=== PATIENT | male | born 1955 | race Caucasian/White ===

== ENCOUNTER 2025-09-06 10:28 | Inpatient (IN) ==
[2025-09-06] MEDS: OPTIRAY 320 125ml IV ONE (10:33)
--- NOTE | 2025-09-06 10:35 | Emergency Department Note ---
Impression & Plan Acute CVA (cerebrovascular accident), Stroke-like symptoms, Hypokalemia ED Provider Note NAME: SUJIT LEWIS AGE: 70 SEX: M : 1955 ARRIVES VIA: Ambulance INFORMANT: Patient ED PROVIDER(S): Chuy Umaña DO CHIEF COMPLAINT: Trouble speaking and right-sided weakness HPI: Patient is a 70-year-old male with a past medical history of prostate cancer and arthritis who presents to the ER following going to bed some around 11 PM last night. He woke up some around 755 and noticed that his right side was weak and he fell. Patient denies any chest pain or shortness of breath. No nausea, vomiting, or diarrhea. No dysuria, urgency, or frequency. No other exacerbating or remitting factors. ADDITIONAL HISTORY OBTAINED: Per HPI Chronic Medical/Social Conditions Affecting Care: Per HPI PAST MEDICAL HISTORY:See Below PAST SURGICAL HISTORY:See Below FAMILY HISTORY:See Below SOCIAL HISTORY:See Below HOME MEDICATIONS:See Below ALLERGIES:See Below VITALS:See Below PHYSICAL EXAMINATION: GENERAL: Sitting up in bed, alert, well appearing, well nourished, no distress, non-toxic EYE EXAM: normal conjunctiva. PERRL and EOM's intact. OROPHARYNX: no exudate, no erythema, lips, buccal mucosa, and tongue normal and mucous membranes are moist NECK: supple, no nuchal rigidity, no adenopathy, non-tender LUNGS: Clear to auscultation. Normal chest wall mechanics HEART: no murmurs, S1 normal and S2 normal ABDOMEN: abdomen soft, non-tender, normo-active bowel sounds, no masses, no rebound or guarding. UPPER EXTREMITIES: upper extremities are grossly normal. LOWER EXTREMITIES: No pitting edema. NEURO EXAM: Normal sensorium, slight facial droop on the right, right arm and right leg slightly weaker than left. No left-sided weakness MEDICAL DECISION MAKING: Patient is a 70-year-old male who presents ER via EMS for received medical command call on 4 right-sided deficit. Upon evaluation the patient he notes he woke up this way. Went to bed last night around 11 PM. IVs were established blood work was obtained. Taken emergently to CT scan. Labs show mild leukocytosis 11,000. No significant anemia. INR unremarkable. BMP with mild hypokalemia at 130. LFTs bilirubin was unremarkable. Troponin was negative. TSH unremarkable. CT angios of the head and neck showed no a left-sided stroke consistent with a right-sided deficit. Patient woke up with this this morning. Patient is not a candidate for TNK due to timing. No LVO. Discussed case with the hospitalist for further evaluation management treatment. Discussed with her she telestroke evaluate the patient recommended aspirin and Plavix although the patient cannot take Plavix and she failed swallow study currently. Update the hospitalist in regards to this. Consults/Care Managements Discussions: Per [facility] Triage Nursing notes reviewed. Limited review of prior medical records performed Vital Signs: reviewed and remarkable for no significant abnormalities Differential diagnosis: Differential Diagnosis includes but is not limited to ischemic Stroke, hemorrhagic stroke, bells palsy, mass, neoplasm, migraine headache, seizure, subarachnoid hemorrhage, TIA, and transient global amnesia. ER treatment provided: See below Diagnostics interpreted by me include EKG and cardiac monitoring as listed below: -Cardiac Monitoring: An order was placed for continuous cardiac monitoring. The monitor shows a rate of with [] rhythm. -ECG: Sinus rhythm rate of 88 Left axis No PVCs QTc 445 -Laboratory studies:Interpreted by me as stated above in MDM and shown below. Imaging studies: Xrays: As interpreted by me:none CTs show: CT of the head per my preliminary interpretation shows stroke in the left thalamus region per my preliminary interpretation CT of the head as well as angios of head and neck as described above Procedures:none Critical Care: None Past Med/Surg History Problem List (Updated 09/06/25 @ 14:52 by Chuy Umaña DO) Hypokalemia (Acute) Stroke-like symptoms (Acute) Acute CVA (cerebrovascular accident) (Acute) Arthritis Prostate cancer Elevated PSA Urinary symptom or sign Medical History Broken thumb Ruptured ear drum Torn ligament Surgical History History of hernia surgery History of prostate biopsy Family History Father Lung cancer Cancer Mother Ovarian cancer Social History Smoking Status: Former smoker Hx Alcohol Use: Yes Hx Substance Use: No Preferred Language: Yemeni Communication Ability: Effective Visual Impairment: No Limitations Hearing Ability: Normal 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 Beliefs That Will Affect Care: None marital status: Single Current Living Situation: Alone current occupational status: retired Feels Safe at Home: Yes Diet: regular Allergies Allergies Allergy/AdvReac Type Severity Reaction Status Date / Time Penicillins Allergy Unknown Rash Verified 04/19/21 11:51 pollen extracts AdvReac Unknown "seasonal Verified 09/06/25 11:48 allergies" Results & Data (ED) Vital Signs Vital Signs - 24 hr 09/06/25 10:38 09/06/25 11:04 09/06/25 11:20 Temperature 36.5 C Temperature Source Oral Pulse Rate 99 H 90 Pulse Rate [Apical] 96 H Respiratory Rate 18 18 Respiratory Effort / Characteristics Non-Labored Spontaneous Non-Labored Spontaneous Respiratory Depth Normal Normal Respiratory Pattern Regular Blood Pressure 147/86 H Blood Pressure [Left Arm] 150/98 H Blood Pressure Mean 106 Blood Pressure Mean [Left Arm] 115 Blood Pressure Position Lying Blood Pressure Position [Left Arm] Pulse Oximetry 99 97 Oxygen Delivery Method Room Air Room Air Sepsis Recent Fever Within 48 Hours No Sepsis New/Unexplained Change in Mental Status No Sepsis Action Taken by Nursing No Action Required 09/06/25 12:11 09/06/25 13:00 09/06/25 14:14 Temperature 37.0 C 37.0 C Temperature Source Oral Oral Pulse Rate Pulse Rate [Apical] 84 86 87 Respiratory Rate 20 18 16 Respiratory Effort / Characteristics Non-Labored Spontaneous Non-Labored Spontaneous Respiratory Depth Normal Normal Respiratory Pattern Regular Regular Blood Pressure Blood Pressure [Left Arm] 145/83 H 139/73 144/80 H Blood Pressure Mean Blood Pressure Mean [Left Arm] 103 95 101 Blood Pressure Position Blood Pressure Position [Left Arm] Semi-fowlers Semi-fowlers Semi-fowlers Pulse Oximetry 98 97 98 Oxygen Delivery Method Room Air Room Air Room Air Sepsis Recent Fever Within 48 Hours Sepsis New/Unexplained Change in Mental Status Sepsis Action Taken by Nursing Laboratory Data 09/06/25 10:42 09/06/25 10:42 Lab Results 09/06/25 09/06/25 Range/Units 10:42 10:45 WBC 11.15 H (4.8-10.8) K/ul RBC 4.13 L (4.70-6.10) M/uL Hgb 12.7 L (14.0-18.0) g/dl Hct 35.9 L (42.0-52.0) % MCV 86.9 (80.0-100.0) fL MCH 30.8 (25.0-34.0) pg MCHC 35.4 (32.0-36.0) g/dL RDW Std Deviation 40.5 (36.4-46.3) fL RDW Coeff of Fiona 12.8 (11.5-14.5) % Plt Count 322 (130-400) K/uL MPV 9.2 L (9.4-12.4) fL Immature Gran % (Auto) 0.4 % Neut % (Auto) 75.8 % Lymph % (Auto) 13.0 % Broome % (Auto) 7.3 % Eos % (Auto) 3.0 % Baso % (Auto) 0.5 % Neut # (Auto) 8.45 H (1.40-6.50) K/uL Lymph # (Auto) 1.45 (1.20-3.40) K/uL Broome # (Auto) 0.81 H (0.11-0.59) K/uL Eos # (Auto) 0.34 (0.00-0.50) K/uL Baso # (Auto) 0.06 (0.00-0.20) K/uL Immature Gran # (Auto) 0.04 (0.01-0.20) K/uL PT 10.9 (9.0-12.0) Seconds INR 1.0 (0.9-1.1) APTT 28 (21-31) Seconds PTT Ratio 1.0 Sodium 130 L (136-145) mmol/L Potassium 3.9 (3.5-5.1) mmol/L Chloride 101 (98-107) mmol/L Carbon Dioxide 19 L (21-32) mmol/L Anion Gap 10 (3-11) BUN 17 (6-23) mg/dl Creatinine 0.72 (0.6-1.4) mg/dl Est Cr Clr Drug Dosing 98.6 ml/min eGFR 98.28 BUN/Creatinine Ratio 23.6 H (10-20) Glucose 87 (70-99(Fasting)) mg/dl POC Glucose 82 (70-99) mg/dl Estimat Average Glucose 97 mg/dl Hemoglobin A1c 5.0 (4.5-5.6) % Calcium 8.6 (8.6-10.3) mg/dl Magnesium 1.7 (1.7-2.4) mg/dl Total Bilirubin 0.8 (0.2-1.0) mg/dl AST 23 (13-39) U/L ALT 18 (7-52) U/L Alkaline Phosphatase 65 (34-104) U/L Troponin I High Sens 4.7 (0-20) pg/ml Total Protein 6.2 (6.0-8.3) gm/dl Albumin 3.5 (3.4-5.0) gm/dl Globulin 2.7 (2.5-4.0) gm/dl Albumin/Globulin Ratio 1.3 (0.9-2) Triglycerides 79 (0-150) mg/dl Cholesterol 151 (0-200) mg/dl LDL Cholesterol, Calc 90 mg/dl VLDL Cholesterol, Calc 16 (0-30) mg/dl HDL Cholesterol 45 mg/dl Cholesterol/HDL Ratio 3.4 (0-5) Vitamin B12 248 (180-914) pg/ml TSH 1.761 (0.300-4.500) uIu/ml Administered Medications Atorvastatin Calcium (Atorvastatin 40 Mg Tab) 40 mg PO [facility] Stop: 10/06/25 11:44 Last Admin: 09/06/25 13:01 Dose: Not Given Documented By: SHANTE Folic Acid (Folic Acid 1 Mg Tab) 1 mg PO [facility] Stop: 10/06/25 11:59 Last Admin: 09/06/25 13:02 Dose: Not Given Documented By: SHANTE Dextrose/Lactated Ringer's (D5w And Lactated Ringers) 1,000 mls @ 100 mls/hr IV .Q10H [facility] Stop: 09/09/25 11:59 Last Admin: 09/06/25 13:18 Dose: 100 mls/hr Documented By: SHANTE Multivitamins (Multivitamin Tab) 1 tab PO [facility] Stop: 10/06/25 11:59 Last Admin: 09/06/25 13:02 Dose: Not Given Documented By: SHANTE Discontinued Medications Aspirin (Aspirin 300 Mg Supp) 300 mg OR ONE ONE Stop: 09/06/25 11:33 Last Admin: 09/06/25 12:56 Dose: 300 mg Documented By: SHANTE Thiamine HCl 500 mg/ Sodium (Chloride) 55 mls @ 210 mls/hr IV NOW ONE Stop: 09/06/25 12:05 Last Infusion: 09/06/25 13:17 Dose: Infused Documented By: Admin: 09/06/25 12:58 Dose: 210 mls/hr Documented By: SHNATE Ioversol (Optiray 320 125ml) 120 ml IV ONCE ONE Stop: 09/06/25 10:34 Last Admin: 09/06/25 10:33 Dose: 120 ml Documented By: MAYA Imaging Data Radiologist's Impression: Head CT 09/06/25 10:20 CT SCAN OF THE BRAIN WITHOUT IV CONTRAST CLINICAL HISTORY: Weakness. Confusion. Evaluate for stroke. COMPARISON STUDY: None. TECHNIQUE: Unenhanced axial CT scan of the brain was performed from the vertex to the skull base. A dose lowering technique was utilized adhering to the principles of ALARA. FINDINGS: No acute intracranial hemorrhage is present. Note is made of a 3.4 x 1.8 cm hypodense focus within the left basal ganglia on image 55 of 112. There is suggestive of mild mass effect with slight compression of the left lateral ventricle. A small hypoechoic dense 5 mm focus within left caudate head may be chronic. White matter hypodensity suggests small vessel disease. Basal cisterns are patent. There are no extra-axial collections. There are no calvarial fractures. There is mild sinus mucosal thickening. IMPRESSION: 1. No acute intracranial hemorrhage. 2. 3.4 x 1.8 cm hypodense focus within left basal ganglia suggestive of an acute to subacute infarct with mild mass effect. 3. Small age indeterminate left caudate head infarct. ACT 112: Negative or not required by law. Electronically signed by: Gentry Goldman M.D. 09/06/2025 11:01 AM Head CTA 09/06/25 10:20 CTA ANGIOGRAPHY OF THE HEAD CLINICAL HISTORY: neuro deficit, acute stroke suspected COMPARISON STUDY: No previous studies for comparison. TECHNIQUE: Helical axial images of the head were obtained following uneventful intravenous administration of 120 cc of Optiray. Sagittal and coronal reconstructions were viewed as well as maximal intensity projections on an independent 3-D workstation. Automated exposure control was utilized for the study. A dose lowering technique was utilized adhering to the principles of ALARA. CT DOSE: 1516.25 mGy.cm FINDINGS: A 3.4 x 1.8 cm hypodense focus within the left basal ganglia is better depicted on the unenhanced head CT which will be reported separately. No acute intracranial hemorrhage is present. The bilateral M1 and M2 segments are patent. Both anterior cerebral arteries arise from the left internal carotid artery. Posterior circulation is intact. No large vessel occlusion is identified. No intracranial aneurysm. IMPRESSION: 1. No large vessel occlusion. No intracranial aneurysm. 2. 3.4 x 1.8 cm hypodense focus within the left basal ganglia better depicted on the noncontrast head CT. This is suggestive of an acute to subacute infarct with mild mass effect. ACT 112: Negative or not required by law. Electronically signed by: Gentry Goldman M.D. 09/06/2025 11:06 AM Neck CTA 09/06/25 10:20 CT angio neck with con CLINICAL HISTORY: neuro deficit, acute stroke suspected. TECHNIQUE: Following the IV administration of 120 of Optiray, CT angiogram of the neck was performed from the aortic arch to the skull base. Images are reviewed in the axial, sagittal, and coronal planes. 3-D MIPS images are created and assessed. IV contrast was administered without complication. All measurements were calculated based on NASCET criteria. A dose lowering technique was utilized adhering to the principles of ALARA. COMPARISON STUDY: None FINDINGS: Origin of the left common carotid artery is off the field of view inferiorly. No significant narrowing or occlusion seen at the common or internal carotid or vertebral arteries bilaterally. IMPRESSION: No significant arterial narrowing or occlusion seen at the neck. ACT 112: Negative or not required by law. The above report was generated using voice recognition software. It may contain grammatical, syntax or spelling errors. Electronically signed by: Solitario Silva M.D. 09/06/2025 11:[address] 09/06/25 10:35 CT SCAN OF THE CERVICAL SPINE CLINICAL HISTORY: Fall. Confusion. COMPARISON STUDY: None. TECHNIQUE: CT scan of the cervical spine is performed from the skull base to the upper thoracic spine. Images are reviewed in the axial, sagittal, and coronal planes. IV contrast was not administered for this examination. A dose lowering technique was utilized adhering to the principles of ALARA. FINDINGS: Skeletal structures: There is mild reversal of the cervical lordosis. Moderate multilevel disc space narrowing, endplate osteophytosis and facet arthrosis within the cervical spine is present. There is no evidence of fracture or subluxation involving the cervical spine. Vertebral body height and alignment are maintained. The odontoid process and lateral masses are intact. The atlantoaxial articulation is preserved. The spinous processes appear intact. Soft tissues: The prevertebral and paraspinous soft tissues are within normal limits. Calvarium: The visualized calvarium at the skull base appears intact. Brain parenchyma: Partially visualized brain parenchyma at the skull base is within normal limits. Lung apices: Clear as visualized. IMPRESSION: No acute cervical spine fracture or subluxation. ACT 112: Negative or not required by law. Electronically signed by: Gentry Goldman M.D. 09/06/2025 11:13 AM Brain MRI 09/06/25 11:35 MR brain wo con HISTORY: 70 years-old Male stroke acute stroke like symptoms COMPARISON: Head CT 09/06/2025 TECHNIQUE: Multiplanar multisequence MRI of the brain was obtained without IV contrast FINDINGS: 2.1 x 3.9 x 3.4 similar focus of restricted diffusion involves the left frontal lobe stringer radiata/lentiform nucleus with decreased signal on ADC map and increased T2/FLAIR signal causing mild adjacent mass effect with partial effacement of the left lateral ventricle. Midline structures are unremarkable. Degenerative changes of the cervical spine. Rightward midline shift of 5 mm. No acute intracranial hemorrhage, hydrocephalus or definite intra-axial mass. Involutional changes with moderate T2/FLAIR hyperintense foci throughout the white matter. Cerebral venous sinuses and major arterial flow voids appear patent. Skull, orbits and soft tissues are unremarkable. Trace mastoid effusions. IMPRESSION: 1. Acute 4 cm infarct of the left frontal lobe stringer radiata and lentiform nucleus. The associated cytotoxic edema causes local mass effect with resultant 5 mm rightward midline shift. 2. No acute intracranial hemorrhage. 3. Involutional changes with chronic microvascular ischemic disease. ACT 112: Negative or not required by law. The above report was generated using voice recognition software. It may contain grammatical, syntax or spelling errors. Electronically signed by: Nathen Padilla M.D. 09/06/2025 12:53 PM Discharge Plan Visit Data Chief Complaint: Stroke Alert ED Provider: Chuy Umaña Discharge Problem: Acute CVA (cerebrovascular accident), Stroke-like symptoms, Hypokalemia Patient Disposition: Admitted As Inpatient Condition: Serious Discharge Instructions Interventions: ED Discharge Assessment Last Done: 09/06/25 14:25 Forms Stand Alone Forms: My [facility] Referrals Referrals: Eric Jensen MD [Primary Care Provider] -
--- NOTE | 2025-09-06 11:03 | CT Scan Report ---
CT SCAN OF THE BRAIN WITHOUT IV CONTRAST CLINICAL HISTORY: Weakness. Confusion. Evaluate for stroke. COMPARISON STUDY: None. TECHNIQUE: Unenhanced axial CT scan of the brain was performed from the vertex to the skull base. A dose lowering technique was utilized adhering to the principles of ALARA. FINDINGS: No acute intracranial hemorrhage is present. Note is made of a 3.4 x 1.8 cm hypodense focus within the left basal ganglia on image 55 of 112. There is suggestive of mild mass effect with sligh t compression of the left lateral ventricle. A small hypoechoic dense 5 mm focus within left caudate head may be chronic. White matter hypodensity suggests small vessel disease. Basal cisterns are paten t. There are no extra-axial collections. There are no calvarial fractures. There is mild sinus mucosa l thickening. IMPRESSION: 1. No acute intracranial hemorrhage. 2. 3.4 x 1.8 cm hypodense focus within left basal ganglia suggestive of an acute to subacute infarct with mild mass effect. 3. Small age indeterminate left caudate head infarct. ACT 112: Negative or not required by law. Electronically signed by: Gentry Goldman M.D. 09/06/2025 11:01 AM
--- NOTE | 2025-09-06 11:06 | CT Scan Report ---
CT angio neck with con CLINICAL HISTORY: neuro deficit, acute stroke suspected. TECHNIQUE: Following the IV administration of 120 of Optiray, CT angiogram of the neck was performed from the aortic arch to the skull base. Images are reviewed in the axial, sagittal, and coronal plane s. 3-D MIPS images are created and assessed. IV contrast was administered without complication. All m easurements were calculated based on NASCET criteria. A dose lowering technique was utilized adherin g to the principles of ALARA. COMPARISON STUDY: None FINDINGS: Origin of the left common carotid artery is off the field of view inferiorly. No significan t narrowing or occlusion seen at the common or internal carotid or vertebral arteries bilaterally. IMPRESSION: No significant arterial narrowing or occlusion seen at the neck. ACT 112: Negative or not required by law. The above report was generated using voice recognition software. It may contain grammatical, syntax o r spelling errors. Electronically signed by: Solitario Silva M.D. 09/06/2025 11:05 AM
[2025-09-06 11:07] LABS: Hematocrit (blood only) 35.9 % (42.0-52.0); Hemoglobin 12.7 g/dl (14.0-18.0); Immature Granulocytes # (auto) 0.04 K/uL (0.01-0.20); Immature Granulocytes % (auto) 0.4 %; Mean Corpuscular Hemoglobin 30.8 pg (25.0-34.0); Mean Corpuscular Volume 86.9 fL (80.0-100.0); Platelet Count 322 K/uL (130-400); RDW Standard Deviation 40.5 fL (36.4-46.3); Red Blood Count 4.13 M/uL (4.70-6.10); White Blood Count 11.15 K/ul (4.8-10.8)
--- NOTE | 2025-09-06 11:07 | CT Scan Report ---
CTA ANGIOGRAPHY OF THE HEAD CLINICAL HISTORY: neuro deficit, acute stroke suspected COMPARISON STUDY: No previous studies for comparison. TECHNIQUE: Helical axial images of the head were obtained following uneventful intravenous administr ation of 120 cc of Optiray. Sagittal and coronal reconstructions were viewed as well as maximal inten sity projections on an independent 3-D workstation. Automated exposure control was utilized for the study. A dose lowering technique was utilized adhering to the principles of ALARA. CT DOSE: 1516.25 mGy.cm FINDINGS: A 3.4 x 1.8 cm hypodense focus within the left basal ganglia is better depicted on the unen hanced head CT which will be reported separately. No acute intracranial hemorrhage is present. The bi lateral M1 and M2 segments are patent. Both anterior cerebral arteries arise from the left internal c arotid artery. Posterior circulation is intact. No large vessel occlusion is identified. No intracran ial aneurysm. IMPRESSION: 1. No large vessel occlusion. No intracranial aneurysm. 2. 3.4 x 1.8 cm hypodense focus within the left basal ganglia better depicted on the noncontrast head CT. This is suggestive of an acute to subacute infarct with mild mass effect. ACT 112: Negative or not required by law. Electronically signed by: Gentry Goldman M.D. 09/06/2025 11:06 AM
--- NOTE | 2025-09-06 11:15 | CT Scan Report ---
CT SCAN OF THE CERVICAL SPINE CLINICAL HISTORY: Fall. Confusion. COMPARISON STUDY: None. TECHNIQUE: CT scan of the cervical spine is performed from the skull base to the upper thoracic spine . Images are reviewed in the axial, sagittal, and coronal planes. IV contrast was not administered fo r this examination. A dose lowering technique was utilized adhering to the principles of ALARA. FINDINGS: Skeletal structures: There is mild reversal of the cervical lordosis. Moderate multilevel disc space narrowing, endplate osteophytosis and facet arthrosis within the cervical spine is present. There is no evidence of fracture or subluxation involving the cervical spine. Vertebral body height and alignm ent are maintained. The odontoid process and lateral masses are intact. The atlantoaxial articulatio n is preserved. The spinous processes appear intact. Soft tissues: The prevertebral and paraspinous soft tissues are within normal limits. Calvarium: The visualized calvarium at the skull base appears intact. Brain parenchyma: Partially visualized brain parenchyma at the skull base is within normal limits. Lung apices: Clear as visualized. IMPRESSION: No acute cervical spine fracture or subluxation. ACT 112: Negative or not required by law. Electronically signed by: Gentry Goldman M.D. 09/06/2025 11:13 AM
[2025-09-06 11:26] LABS: Alanine Aminotransferase 18.0 U/L (7-52); Albumin Globulin Ratio 1.3 (0.9-2); Albumin Level 3.5 gm/dl (3.4-5.0); Alkaline Phosphatase 65.0 U/L (34-104); Anion Gap 10.0 (3-11); Bilirubin,Total 0.8 mg/dl (0.2-1.0); Blood Urea Nitrogen 17.0 mg/dl (6-23); Calcium 8.6 mg/dl (8.6-10.3); Carbon Dioxide 19.0 mmol/L (21-32); Chloride 101.0 mmol/L (98-107); Creatinine Clr Calc Pharmacy 98.6 ml/min; Globulin 2.7 gm/dl (2.5-4.0); Glucose 87.0 mg/dl (70-99(Fasting)); Magnesium 1.7 mg/dl (1.7-2.4); Potassium 3.9 mmol/L (3.5-5.1); Sodium 130.0 mmol/L (136-145); Total Protein 6.2 gm/dl (6.0-8.3)
[2025-09-06] MEDS ORDERED: PHARMACIST DISCHARGE MED REC CONSULT PRN (11:35)
[2025-09-06 11:37] LABS: INR 1.0 (0.9-1.1); Partial Thromboplastin Time 28 Seconds (21-31); Prothrombin Time 10.9 Seconds (9.0-12.0)
[2025-09-06 12:46] LABS: Cholesterol 151.0 mg/dl (0-200); HDL Cholesterol 45.0 mg/dl; Triglycerides 79.0 mg/dl (0-150)
--- NOTE | 2025-09-06 12:54 | Magnetic Resonance Report ---
MR brain wo con HISTORY: 70 years-old Male stroke acute stroke like symptoms COMPARISON: Head CT 09/06/2025 TECHNIQUE: Multiplanar multisequence MRI of the brain was obtained without IV contrast FINDINGS: 2.1 x 3.9 x 3.4 similar focus of restricted diffusion involves the left frontal lobe stringer radiata/l entiform nucleus with decreased signal on ADC map and increased T2/FLAIR signal causing mild adjacent mass effect with partial effacement of the left lateral ventricle. Midline structures are unremarkab le. Degenerative changes of the cervical spine. Rightward midline shift of 5 mm. No acute intracrania l hemorrhage, hydrocephalus or definite intra-axial mass. Involutional changes with moderate T2/FLAIR hyperintense foci throughout the white matter. Cerebral venous sinuses and major arterial flow voids appear patent. Skull, orbits and soft tissues a re unremarkable. Trace mastoid effusions. IMPRESSION: 1. Acute 4 cm infarct of the left frontal lobe stirnger radiata and lentiform nucleus. The associated c ytotoxic edema causes local mass effect with resultant 5 mm rightward midline shift. 2. No acute intracranial hemorrhage. 3. Involutional changes with chronic microvascular ischemic disease. ACT 112: Negative or not required by law. The above report was generated using voice recognition software. It may contain grammatical, syntax o r spelling errors. Electronically signed by: Nathen Padilla M.D. 09/06/2025 12:53 PM
[2025-09-06] MEDS: ASPIRIN 300 MG SUPP PR ONE (12:56)
[2025-09-06] MEDS: THIAMINE HCL 500 MG in SODIUM CHLORIDE 0.9% 50 ML IV ONE (12:58)
[2025-09-06] MEDS: ATORVASTATIN 40 MG TAB PO SCH (13:01)
[2025-09-06 13:02] LABS: Thyroid Stimulating Hormone 1.761 uIu/ml (0.300-4.500)
[2025-09-06] MEDS: FOLIC ACID 1 MG TAB PO SCH (13:02)
[2025-09-06] MEDS: MULTIVITAMIN TAB PO SCH (13:02)
[2025-09-06] MEDS: D5W AND LACTATED RINGERS 1,000 ML IV SCH (13:18)
[2025-09-06 13:53] LABS: Hemoglobin A1C 5.0 % (4.5-5.6)
[2025-09-06] MEDS ORDERED: POLYETHYLENE (MIRALAX) 17 GM PACK PO PRN (16:18)
[2025-09-06 16:22] LABS: Amphetamines+Metham, Urine Neg (Neg); MDMA (Ecstacy), Urine Neg (Neg); Marijuana, Urine Neg (Neg)
--- NOTE | 2025-09-06 16:56 | XCELERA ---
[id number]
--- NOTE | 2025-09-06 17:56 | History & Physical Report ---
Date of Service September 06, 2025 Assessment & Plan (1) Hypokalemia: (2) Acute CVA (cerebrovascular accident): (3) Elevated PSA: Plan 70 yo male with pmhx of alcohol use (6 drinks per night), mild cognitive impairment 2/2 alcohol use, tobacco use, hypothyroidism, prostate cancer (unclear staging or etiology) presenting for right arm/leg movement difficulties and confusion 2/2 acute stroke. #Left Frontal Snow Radiata/Lentiform Nucleus Stroke #Cytotoxic Edema w/ Midline Shift -as noted on MR brain, 5mm midline shift with cytotoxic edema -has NIHSS of 7 on my exam for dysarthria, mild loss of sensation on right side, right leg drift, right arm drift, partial paralysis of right lower face -has substantial alcohol use which is likely risk factor Plan: -neurology consulted, appreciate recs -discussed MR findings personally with neurology, recommending supportive care -speech, PT/OT consults, failed bedside swallow, will await speech eval -stroke order set utilized -start maintenance D5LR at 100cc/hr -check A1c, lipids, TSH for metabolic workup -check tox screen -aspirin and statin daily, ordered aspirin rectal given failed bedside swallow #Alcohol Use #R/o Wernickes/Korsakoff Syndrome -drinks at least 6 drinks per night -charted evidence of cognitive impairment noted -does have some mild myoclonus on exam Plan: -AWSS score tracking -ativan prn for high AWSS scores -start thiamine, folic acid, check B12 -will need alcohol rehab discussion once out of acute period for stroke #Hypothyroidism -not on any home meds -check TSH #Tobacco Use -nicotine patch prn I spent a total of 80 minutes in direct patient care, including [id number] time with the patient and/or family, reviewing medical records, ordering and reviewing diagnostic tests, and coordinating care with other healthcare providers. This time includes: history taking, physical examination, medical decision making, counseling, ECG interpretation, imaging interpretation, lab interpretation, orders, and education, excluding time spent in the performance of separately billed services. Admission and Anticipated Discharge Date Admission Date: September 06, 2025 History of Present Illness Chief Complaint: -right arm/leg movement difficulties Primary Care Provider: Eric Jensen MD 70 yo male with pmhx of alcohol use (6 drinks per night), mild cognitive impairement 2/2 alcohol use, tobacco use, hypothyroidism, prostate cancer (unclear staging or etiology) presenting for right arm/leg movement difficulties and confusion. No recent admissions. In the ED, code stroke called, CT head revealing acute/subacute infarct in left basal ganglia, telestroke recommended admission for stroke workup, aspirin given, admitted to medicine. Patient seen and examined at bedside. Patient states he went to bed normally last night, was drinking last night as well and states he passed out. Drinks at least 6 beers nightly. Woke up this morning and could not move right arm or right leg. States this has not happened to him before. States he fell to the ground and does not remember how he got here. States he is at hospital, does not know which hospital. States he feels like he is improving Code status discussed, patient states that he would not want intubation or chest compressions at end of life, was able to explain what this means with readback. Was able to explain risks and benefits of resuscitation after being informed of them. Allergies Allergy/AdvReac Type Severity Reaction Status Date / Time Penicillins Allergy Intermediate Rash Verified 09/06/25 15:44 pollen extracts Allergy Unknown "seasonal Verified 09/06/25 15:44 allergies" Home Medications Medication Instructions Recorded Confirmed Type No Known Home Medications 09/06/25 09/06/25 History Past Med/Surg History Problem List (Updated 09/06/25 @ 14:52 by Chuy Umaña DO) Hypokalemia (Acute) Stroke-like symptoms (Acute) Acute CVA (cerebrovascular accident) (Acute) Arthritis Prostate cancer Elevated PSA Urinary symptom or sign Medical History Broken thumb Ruptured ear drum Torn ligament Surgical History History of hernia surgery History of prostate biopsy Family History Father Lung cancer Cancer Mother Ovarian cancer Social History Smoking Status: Current every day smoker Tobacco Type: Cigarettes Second Hand Exposure: No; Do You Dip or Chew Tobacco: No; Tobacco Cessation Education Requested by Patient: No Hx Alcohol Use: Yes Alcohol type: beer Hx Substance Use: No Preferred Language: Thai Communication Ability: Effective Visual Impairment: No Limitations Hearing Ability: Normal Information Security Director Required: No Beliefs That Will Affect Care: None marital status: Single Current Living Situation: Alone current occupational status: retired Other Information That Helps Us Care for You: No Feels Safe at Home: Yes Safety Concerns: Feels Safe At This Time Diet: regular Assistive Devices: Glasses Review of Systems Review of Systems: -negative unless listed above Physical Exam Physical Exam: Gen: A&O 3 NAD HEENT: NCAT, EOMI, not icteric. External ears normal. No rhinorrhea. Dry mucous membranes. Neck: Supple, full range of motion, no observable masses, No meningeal sign. Lungs: No Respiratory distress. CV: RRR, no edema. Abdomen: Soft, nondistended, No rebound tenderness. MSK: No joint swelling, no redness. Skin: No rashes, petechiae, lesions. Normal color per patient. Neuro:NIHSS of 7 points for dysarthria, mild loss of sensation on right side, right leg drift, right arm drift, partial paralyisis of right lower face Psych: Appropriate for situation. Results & Data Results & Data Vital Signs (Past 12 Hours) Vital Signs Temp Pulse Pulse Resp BP BP Pulse Ox 09/06/25 16:25 36.5 C 83 16 165/88 H 99 09/06/25 14:14 37.0 C 87 16 144/80 H 98 09/06/25 13:00 86 18 139/73 97 09/06/25 12:11 37.0 C 84 20 145/83 H 98 09/06/25 11:20 96 H 18 150/98 H 97 09/06/25 11:04 90 09/06/25 10:38 36.5 C 99 H 18 147/86 H 99 O2 Del Method 09/06/25 16:25 Room Air 09/06/25 14:14 Room Air 09/06/25 13:00 Room Air 09/06/25 12:11 Room Air 09/06/25 11:20 Room Air 09/06/25 11:04 09/06/25 10:38 Room Air Laboratory Results -personally revieewed, WBC mildly elevated likely reactive, Na 130 in setting of alcohol use Medications Administered Atorvastatin Calcium ([facility]atin 40 Mg Tab) [facility] Stop: 10/06/25 11:44 Last Admin: 09/06/25 13:01 Dose: Not Given Documented By: SHANTE Folic Acid (Folic Acid 1 Mg Tab) 1 mg PO QAM [facility] Stop: 10/06/25 11:59 Last Admin: 09/06/25 13:02 Dose: Not Given Documented By: SHANTE Dextrose/Lactated Ringer's (D5w And Lactated Ringers) 1,000 mls @ 100 mls/hr IV .Q10H [facility] Stop: 09/09/25 11:59 Last Admin: 09/06/25 13:18 Dose: 100 mls/hr Documented By: SHANTE Multivitamins (Multivitamin Tab) [facility] Stop: 10/06/25 11:59 Last Admin: 09/06/25 13:02 Dose: Not Given Documented By: SHANTE Code Status & VTE Plan Code Status -DNRDNI, discussed with patient VTE Prophylaxis Plan VTE Prophylaxis will be ordered: Yes
[2025-09-07 06:21] LABS: Hematocrit (blood only) 38.3 % (42.0-52.0); Hemoglobin 13.0 g/dl (14.0-18.0); Immature Granulocytes # (auto) 0.05 K/uL (0.01-0.20); Immature Granulocytes % (auto) 0.6 %; Mean Corpuscular Hemoglobin 29.4 pg (25.0-34.0); Mean Corpuscular Volume 86.7 fL (80.0-100.0); Platelet Count 307 K/uL (130-400); RDW Standard Deviation 40.8 fL (36.4-46.3); Red Blood Count 4.42 M/uL (4.70-6.10); White Blood Count 8.51 K/ul (4.8-10.8)
[2025-09-07 06:42] LABS: Anion Gap 6.0 (3-11); Blood Urea Nitrogen 16.0 mg/dl (6-23); Calcium 8.9 mg/dl (8.6-10.3); Carbon Dioxide 25.0 mmol/L (21-32); Chloride 106.0 mmol/L (98-107); Creatinine Clr Calc Pharmacy 109.1 ml/min; Glucose 121.0 mg/dl (70-99(Fasting)); Potassium 3.7 mmol/L (3.5-5.1); Sodium 137.0 mmol/L (136-145)
--- NOTE | 2025-09-07 08:11 | Hospitalist Progress Note ---
Date of Service September 07, 2025 Assessment & Plan (1) Acute CVA (cerebrovascular accident): Plan Per admitting provider w/ addendum: 70 yo male with pmhx of alcohol use (6 drinks per night), mild cognitive impairment 2/2 alcohol use, tobacco use, hypothyroidism, prostate cancer (unclear staging or etiology) presenting for right arm/leg movement difficulties and confusion 2/2 acute stroke. MR brain - IMPRESSION: 1. Acute 4 cm infarct of the left frontal lobe stringer radiata and lentiform nucleus. The associated cytotoxic edema causes local mass effect with resultant 5 mm rightward midline shift. 2. No acute intracranial hemorrhage. 3. Involutional changes with chronic microvascular ischemic disease. #Left Frontal Stringer Radiata/Lentiform Nucleus Stroke #Cytotoxic Edema w/ Midline Shift - discussed w/ neurology - seems overread -as noted on MR brain, 5mm midline shift with cytotoxic edema -has NIHSS of 7 on admission for dysarthria, mild loss of sensation on right si de, right leg drift, right arm drift, partial paralysis of right lower face -has substantial alcohol use which is likely risk factor Plan: -neurology consulted, appreciate recs -admitting provider discussed MR findings personally with neurology, recommending supportive care -speech, PT/OT consults -stroke order set utilized -received IVF -current A1c 5%, lipids - LDL 90, TSH 1.7 -check tox screen - pending -aspirin and statin daily, ordered aspirin rectal on admission given failed bedside swallow Neurology consulted and discussed with - 1) Acute CVA (cerebrovascular accident): Aníbal Solomon is a 70 yo M presenting with a L BG stroke, non-lacunar, likely embolic secondary to uncontrolled vascular risk factors, including hypertension and tobacco/alcohol use. Agree he may have some mild cognitive impairment beyond the language impairment from the stroke itself. Recommend ongoing thiamine and alcohol withdrawl monitoring. For the stroke aspirin monotherapy is appropriate. Agree with lipitor 40mg daily as well. While the stroke is abutting the lateral ventricle on the L there is no clinically significant brain compression despite the read of midline shift on the MRI study. Does not qualify for manitol, no evidence of high ICP on exam and given the size of the stroke this is not exp ected to worsen significantly. -- Aspirin 81mg daily -- Lipitor 40mg daily -- Thiamine PO supplementation -- Alcohol withdrawal monitoring/rehab -- Cardiac event monitor at discharge -- Therapy evals, likely acute rehab placement -- Neurology follow-up in 4-6 weeks #Alcohol Use #R/o Wernickes/Korsakoff Syndrome -drinks at least 6 drinks per night -charted evidence of cognitive impairment noted - +mild myoclonus on exam on admission Plan: -AWSS score tracking -ativan prn for high AWSS scores -started thiamine, folic acid, B12 level 200s, will start B12 supplement as well -will need alcohol rehab discussion once out of acute period for stroke #Hypothyroidism -not on any home meds -TSH 1.7 #Tobacco Use -nicotine patch prn Admission and Anticipated Discharge Date Admission Date: September 06, 2025 Subjective Pt seen in follow up of acute CVA, also hx of alcohol abuse Currently sitting up in bed in NAD Denies any chest pain, shortness of breath, abd. pain, n/b, denies any headache Can't move RUE. Can somewhat move RLE but noticeably weaker than his LLE. Discussed w/ finance assistant of Systems Review of Systems: All systems reviewed & are unremarkable except as noted in Subjective Physical Exam Physical Exam: Gen: A&O 3 NAD HEENT: NCAT, EOMI, not icteric. External ears normal. No rhinorrhea. Neck: Supple Lungs: No Respiratory distress. CV: RRR, no edema. Abdomen: Soft, nondistended, Nontender MSK: No LE edema. Can't move RUE. Can somewhat move RLE but noticeably weaker than LLE. Skin: warm, dry Neuro: awake, alert, answers most questions appropriately. + facial asymmetry. Can't move RUE. Can somewhat move RLE but noticeably weaker than LLE. Results & Data Results & Data Vital Signs (Past 12 Hours) Vital Signs Temp Pulse Pulse Resp BP Pulse Ox O2 Del Method 09/07/25 07:57 77 09/07/25 07:26 36.6 C 78 18 116/74 95 Room Air 09/07/25 03:15 36.6 C 85 18 119/70 95 Room Air 09/06/25 22:59 36.8 C 75 18 122/66 96 Room Air Laboratory Results 09/07/25 09/07/25 09/06/25 Range/Units 06:17 05:41 23:11 WBC 8.51 (4.8-10.8) K/ul RBC 4.42 L (4.70-6.10) M/uL Hgb 13.0 L (14.0-18.0) g/dl Hct 38.3 L (42.0-52.0) % MCV 86.7 (80.0-100.0) fL MCH 29.4 (25.0-34.0) pg MCHC 33.9 (32.0-36.0) g/dL RDW Std Deviation 40.8 (36.4-46.3) fL RDW Coeff of Fiona 13.0 (11.5-14.5) % Plt Count 307 (130-400) K/uL MPV 9.2 L (9.4-12.4) fL Immature Gran % (Auto) 0.6 % Neut % (Auto) 66.0 % Lymph % (Auto) 16.7 % Isabella % (Auto) 9.8 % Eos % (Auto) 6.1 % Baso % (Auto) 0.8 % Neut # (Auto) 5.62 (1.40-6.50) K/uL Lymph # (Auto) 1.42 (1.20-3.40) K/uL Isabella # (Auto) 0.83 H (0.11-0.59) K/uL Eos # (Auto) 0.52 H (0.00-0.50) K/uL Baso # (Auto) 0.07 (0.00-0.20) K/uL Immature Gran # (Auto) 0.05 (0.01-0.20) K/uL PT (9.0-12.0) Seconds INR (0.9-1.1) APTT (21-31) Seconds PTT Ratio Sodium 137 (136-145) mmol/L Potassium 3.7 (3.5-5.1) mmol/L Chloride 106 (98-107) mmol/L Carbon Dioxide 25 (21-32) mmol/L Anion Gap 6 (3-11) BUN 16 (6-23) mg/dl Creatinine 0.63 (0.6-1.4) mg/dl Est Cr Clr Drug Dosing 109.1 ml/min eGFR 102.33 BUN/Creatinine Ratio 25.4 H (10-20) Glucose 121 H (70-99(Fasting)) mg/dl POC Glucose 107 H 110 H (70-99) mg/dl Estimat Average Glucose mg/dl Hemoglobin A1c (4.5-5.6) % Calcium 8.9 (8.6-10.3) mg/dl Magnesium (1.7-2.4) mg/dl Total Bilirubin (0.2-1.0) mg/dl AST (13-39) U/L ALT (7-52) U/L Alkaline Phosphatase (34-104) U/L Troponin I High Sens (0-20) pg/ml Total Protein (6.0-8.3) gm/dl Albumin (3.4-5.0) gm/dl Globulin (2.5-4.0) gm/dl Albumin/Globulin Ratio (0.9-2) Triglycerides (0-150) mg/dl Cholesterol (0-200) mg/dl LDL Cholesterol, Calc mg/dl VLDL Cholesterol, Calc (0-30) mg/dl HDL Cholesterol mg/dl Cholesterol/HDL Ratio (0-5) Vitamin B12 (180-914) pg/ml TSH (0.300-4.500) uIu/ml Urine Opiates Screen (Neg) Ur Methadone, Qual (Neg) Urine Fentanyl Screen (Neg) Urine Barbiturates (Neg) Ur Phencyclidine (PCP) (Neg) U Amphetamin/Meth Scrn (Neg) MDMA (Ecstasy) Screen (Neg) U Benzodiazepines Scrn (Neg) Ur Cocaine Metabolite (Neg) U Marijuana (THC) Screen (Neg) Hepatitis C Ab Screen Pending 09/06/25 09/06/25 09/06/25 Range/Units 15:30 10:45 10:42 WBC 11.15 H (4.8-10.8) K/ul RBC 4.13 L (4.70-6.10) M/uL Hgb 12.7 L (14.0-18.0) g/dl Hct 35.9 L (42.0-52.0) % MCV 86.9 (80.0-100.0) fL MCH 30.8 (25.0-34.0) pg MCHC 35.4 (32.0-36.0) g/dL RDW Std Deviation 40.5 (36.4-46.3) fL RDW Coeff of Fiona 12.8 (11.5-14.5) % Plt Count 322 (130-400) K/uL MPV 9.2 L (9.4-12.4) fL Immature Gran % (Auto) 0.4 % Neut % (Auto) 75.8 % Lymph % (Auto) 13.0 % Isabella % (Auto) 7.3 % Eos % (Auto) 3.0 % Baso % (Auto) 0.5 % Neut # (Auto) 8.45 H (1.40-6.50) K/uL Lymph # (Auto) 1.45 (1.20-3.40) K/uL Isabella # (Auto) 0.81 H (0.11-0.59) K/uL Eos # (Auto) 0.34 (0.00-0.50) K/uL Baso # (Auto) 0.06 (0.00-0.20) K/uL Immature Gran # (Auto) 0.04 (0.01-0.20) K/uL PT 10.9 (9.0-12.0) Seconds INR 1.0 (0.9-1.1) APTT 28 (21-31) Seconds PTT Ratio 1.0 Sodium 130 L (136-145) mmol/L Potassium 3.9 (3.5-5.1) mmol/L Chloride 101 (98-107) mmol/L Carbon Dioxide 19 L (21-32) mmol/L Anion Gap 10 (3-11) BUN 17 (6-23) mg/dl Creatinine 0.72 (0.6-1.4) mg/dl Est Cr Clr Drug Dosing 98.6 ml/min eGFR 98.28 BUN/Creatinine Ratio 23.6 H (10-20) Glucose 87 (70-99(Fasting)) mg/dl POC Glucose 82 (70-99) mg/dl Estimat Average Glucose 97 mg/dl Hemoglobin A1c 5.0 (4.5-5.6) % Calcium 8.6 (8.6-10.3) mg/dl Magnesium 1.7 (1.7-2.4) mg/dl Total Bilirubin 0.8 (0.2-1.0) mg/dl AST 23 (13-39) U/L ALT 18 (7-52) U/L Alkaline Phosphatase 65 (34-104) U/L Troponin I High Sens 4.7 (0-20) pg/ml Total Protein 6.2 (6.0-8.3) gm/dl Albumin 3.5 (3.4-5.0) gm/dl Globulin 2.7 (2.5-4.0) gm/dl Albumin/Globulin Ratio 1.3 (0.9-2) Triglycerides 79 (0-150) mg/dl Cholesterol 151 (0-200) mg/dl LDL Cholesterol, Calc 90 mg/dl VLDL Cholesterol, Calc 16 (0-30) mg/dl HDL Cholesterol 45 mg/dl Cholesterol/HDL Ratio 3.4 (0-5) Vitamin B12 248 (180-914) pg/ml TSH 1.761 (0.300-4.500) uIu/ml Urine Opiates Screen Neg (Neg) Ur Methadone, Qual Neg (Neg) Urine Fentanyl Screen Neg (Neg) Urine Barbiturates Neg (Neg) Ur Phencyclidine (PCP) Neg (Neg) U Amphetamin/Meth Scrn Neg (Neg) MDMA (Ecstasy) Screen Neg (Neg) U Benzodiazepines Scrn Neg (Neg) Ur Cocaine Metabolite Neg (Neg) U Marijuana (THC) Screen Neg (Neg) Hepatitis C Ab Screen Medications Administered Current Inpatient Medications Acetaminophen (Acetaminophen 325 Mg Tab) 650 mg PO Q4H PRN PRN Reason: Pain or Fever Stop: 10/06/25 16:17 Aspirin (Aspirin 81 Mg Ectab) 81 mg PO [facility] Stop: 10/07/25 08:59 Atorvastatin Calcium ([facility]orvastatin 40 Mg Tab) [facility] Stop: 10/06/25 11:44 Last Admin: 09/06/25 13:01 Dose: Not Given Folic Acid (Folic Acid 1 Mg Tab) 1 mg PO QAM [facility] Stop: 10/06/25 11:59 Last Admin: 09/06/25 13:02 Dose: Not Given Dextrose (D5w) 1,000 mls @ 80 mls/hr IV .[id number] [facility] Stop: 09/10/25 08:14 Influenza Virus Vacc Triv Types A&B (Influenza Vacc [id number](65y+)/Pf (Iiv3) 0.5ml Syr) 0.5 ml IM .ONCE ONE Stop: 09/07/25 09:01 Miscellaneous (Remove Nicoderm Patch) 1 each N/A DAILY@0859 [facility] Stop: 10/07/25 08:58 Miscellaneous Information (Pharmacist Discharge Med Rec Consult) 1 each N/A UD PRN PRN Reason: Consult Stop: 10/06/25 11:34 Multivitamins (Multivitamin Tab) 1 tab PO QAM [facility] Stop: 10/06/25 11:59 Last Admin: 09/06/25 13:02 Dose: Not Given Nicotine (Nicotine 14 Mg/24 Hr Patch) 1 patch TD DAILY PRN PRN Reason: nicotine cravings Stop: 10/06/25 18:20 Pneumococcal 20-Valent Conj Vacc (Pneumococcal Vaccine (Pcv20) 20-Gabbi Conj-Dip Crm/Pf 0.5 Ml Syr) 0.5 ml IM .ONCE ONE Stop: 09/07/25 09:01 Polyethylene Glycol (Polyethylene (Miralax) 17 Gm Pack) 17 gm PO DAILY PRN PRN Reason: Constipation Stop: 10/06/25 16:17 Thiamine HCl (Thiamine Hcl 100 Mg Tab) 100 mg PO QAM [facility] Stop: 10/07/25 08:59
--- NOTE | 2025-09-07 08:59 | Electrocardiogram Report ---
Test Reason : Blood Pressure : */* mmHG Vent. Rate : 88 BPM Atrial Rate : 88 BPM P-R Int : 166 ms QRS Dur : 90 ms QT Int : 368 ms P-R-T Axes : 52 -73 55 degrees QTcB Int : 445 ms Normal sinus rhythm Left axis deviation Abnormal ECG No previous ECGs available Confirmed by Roman Cornelius ([id number]) on 09/07/2025 8:59:19 AM Referred By: REFERRED SELF Confirmed By: Roman Cornelius
[2025-09-07] MEDS: DEXTROSE 5% 1,000 ML IV SCH (09:17)
[2025-09-07] MEDS: REMOVE NICODERM PATCH SCH (09:18)
[2025-09-07] MEDS: NICOTINE 14 MG/24 HR PATCH TD PRN (09:18)
[2025-09-07] MEDS: ASPIRIN 81 MG ECTAB PO SCH (11:49)
[2025-09-07] MEDS: THIAMINE HCL 100 MG TAB PO SCH (11:50)
--- NOTE | 2025-09-07 12:31 | Neurology Consultation ---
Date of Consultation September 07, 2025 Assessment & Plan (1) Acute CVA (cerebrovascular accident): Aníbal Solomon is a 70 yo M presenting with a L BG stroke, non-lacunar, likely embolic secondary to uncontrolled vascular risk factors, including hypertension and tobacco/alcohol use. Agree he may have some mild cognitive impairment beyond the language impairment from the stroke itself. Recommend ongoing thiamine and alcohol withdrawl monitoring. For the stroke aspirin monotherapy is appropriate. Agree with lipitor 40mg daily as well. While the stroke is abutting the lateral ventricle on the L there is no clinically significant brain compression despite the read of midline shift on the MRI study. Does not qualify for manitol, no evidence of high ICP on exam and given the size of the stroke this is not expected to worsen significantly. -- Aspirin 81mg daily -- Lipitor 40mg daily -- Thiamine PO supplementation -- Alcohol withdrawal monitoring/rehab -- Cardiac event monitor at discharge -- Therapy evals, likely acute rehab placement -- Neurology follow-up in 4-6 weeks Telehealth Consultation Telehealth Information Telehealth Information: I performed this visit using a real-time telehealth connection between my location and the patients location ([facility]). After connecting through interactive tele-video, patient was identified by name and date of and/or wristband check.Patient (or authorized healthcare litigation claim representative) was informed that this was a telemedicine visit and it was being conducted confidentially over secure lines. My office door was closed and no one else was present in the room with me.Patient (or authorized healthcare litigation claim representative) provided consent to proceed with the visit, expressed an understanding of privacy and security of the telemedicine visit, and gave permission to have a hospital litigation claim representative in the room in order to assist with the visit and to conduct portions of the visit, as needed. I informed the patient (or authorized healthcare litigation claim representative) that I reviewed their record and presented the opportunity for them to ask any questions regarding the visit today. The patient agreed to participate. History of Present Illness Reason for Consultation: R sided weakness Requesting Physician: Dr. Bruno Attending Physician: Hemal Bruno MD History of Present Illness Aníbal Solomon is a 70 yo M presenting with R sided weakness found to have a L BG stroke on MRI. Patient is an alcoholic reporting 6 pack a day, lives alone, does not see doctors or take any medications. No history of stroke in the past. He recognizes he is unable to move his right side. Denies any headache, vision changes, noted difficulty speaking. Allergies Allergy/AdvReac Type Severity Reaction Status Date / Time Penicillins Allergy Intermediate Rash Verified 09/06/25 15:44 pollen extracts Allergy Unknown "seasonal Verified 09/06/25 15:44 allergies" Home Medications Medication Instructions Recorded Confirmed Type No Known Home Medications 09/06/25 09/06/25 History Patient History Medical History Broken thumb Ruptured ear drum Torn ligament Surgical History History of hernia surgery History of prostate biopsy Family History Father Lung cancer Cancer Mother Ovarian cancer Social History Smoking Status: Current every day smoker Tobacco Type: Cigarettes Second Hand Exposure: No; Do You Dip or Chew Tobacco: No; Tobacco Cessation Education Requested by Patient: No Hx Alcohol Use: Yes Alcohol type: beer Hx Substance Use: No Preferred Language: Syriac Communication Ability: Impaired Visual Impairment: No Limitations Hearing Ability: Normal Frame Tender Required: No Beliefs That Will Affect Care: None marital status: Single Current Living Situation: Alone current occupational status: retired Other Information That Helps Us Care for You: No Feels Safe at Home: Yes Safety Concerns: Feels Safe At This Time Diet: regular Assistive Devices: None Review of Systems +R sided weakness Physical Exam Neurological Examination: Mental Status: Awake and alert. Oriented to person, place, and time. Dysfluent and dysarthric with mixed expressive aphasia but able to read the stroke cards. Comprehension intact. Affect appropriate. Cranial Nerves: II: Reads NIHSS cards, pupils 3/3 to 2/2, christensen grossly intact. III/IV/: Versions intact without nystagmus, no gaze preference. V: Facial sensation symmetric to light touch VII: Facial expression reduced on the R Motor: Flaccid in the RUE, antigravity RLE, full strength on the L Coordination: Finger to nose and heel to ayala were intact on the L. Results & Data Vital Signs (Past 12 Hours) Vital Signs Temp Pulse Pulse Resp BP Pulse Ox O2 Del Method 09/07/25 11:01 36.6 C 83 18 143/77 H 95 Room Air 09/07/25 07:57 77 09/07/25 07:26 36.6 C 78 18 116/74 95 Room Air 09/07/25 03:15 36.6 C 85 18 119/70 95 Room Air Laboratory Results Abnormal lab results 09/06/25 09/07/25 09/07/25 Range/Units 23:11 05:41 06:17 RBC 4.42 L (4.70-6.10) M/uL Hgb 13.0 L (14.0-18.0) g/dl Hct 38.3 L (42.0-52.0) % MPV 9.2 L (9.4-12.4) fL Whitman # (Auto) 0.83 H (0.11-0.59) K/uL Eos # (Auto) 0.52 H (0.00-0.50) K/uL BUN/Creatinine Ratio 25.4 H (10-20) Glucose 121 H (70-99(Fasting)) mg/dl POC Glucose 110 H 107 H (70-99) mg/dl Diagnostic Findings Brain MRI 09/06/25 11:35 MR brain wo con HISTORY: 70 years-old Male stroke acute stroke like symptoms COMPARISON: Head CT 09/06/2025 TECHNIQUE: Multiplanar multisequence MRI of the brain was obtained without IV contrast FINDINGS: 2.1 x 3.9 x 3.4 similar focus of restricted diffusion involves the left frontal lobe stringer radiata/lentiform nucleus with decreased signal on ADC map and increased T2/FLAIR signal causing mild adjacent mass effect with partial effacement of the left lateral ventricle. Midline structures are unremarkable. Degenerative changes of the cervical spine. Rightward midline shift of 5 mm. No acute intracranial hemorrhage, hydrocephalus or definite intra-axial mass. Involutional changes with moderate T2/FLAIR hyperintense foci throughout the white matter. Cerebral venous sinuses and major arterial flow voids appear patent. Skull, orbits and soft tissues are unremarkable. Trace mastoid effusions. IMPRESSION: 1. Acute 4 cm infarct of the left frontal lobe stringer radiata and lentiform nucleus. The associated cytotoxic edema causes local mass effect with resultant 5 mm rightward midline shift. 2. No acute intracranial hemorrhage. 3. Involutional changes with chronic microvascular ischemic disease. ACT 112: Negative or not required by law. The above report was generated using voice recognition software. It may contain grammatical, syntax or spelling errors. Electronically signed by: Nathen Padilla M.D. 09/06/2025 12:53 PM
--- NOTE | 2025-09-07 14:24 | Pharmacy Report ---
- Date of Service September 07, 2025 - Pharmacy CVA/TIA Medication Review Medications to Prevent Stroke handout has been added to the patients discharge packet. Antiplatelet(s) * Aspirin 81 mg PO daily Cholesterol * High intensity statin: atorvastatin 40 mg daily DVT Prophylaxis * SCD knee Therapeutic Anticoagulation * No history of Afib/Aflutter noted Type 2 Diabetes * Patient does not have T2DM
[2025-09-07 16:44] LABS: Anion Gap 6.0 (3-11); Blood Urea Nitrogen 19.0 mg/dl (6-23); Calcium 9.2 mg/dl (8.6-10.3); Carbon Dioxide 26.0 mmol/L (21-32); Chloride 103.0 mmol/L (98-107); Creatinine Clr Calc Pharmacy 85.9 ml/min; Glucose 112.0 mg/dl (70-99(Fasting)); Potassium 3.9 mmol/L (3.5-5.1); Sodium 135.0 mmol/L (136-145)
[2025-09-07] MEDS: CYANOCOBALAMIN (B-12) 500 MCG TABLET PO SCH (17:25)
[2025-09-07] MEDS: ACETAMINOPHEN 325 MG TAB PO PRN (19:43)
[2025-09-07] MEDS: GABAPENTIN 100 MG CAP PO SCH (19:44)
[2025-09-07] MEDS: PNEUMOCOCCAL VACCINE (PCV20) 20-VAL CONJ-DIP CRM/PF 0.5 ML SYR IM ONE (19:44)
[2025-09-07] MEDS: INFLUENZA VACC TS2025-26(65y+)/PF (IIV3) 0.5mL Syr IM ONE (19:44)
[2025-09-08 07:01] VITALS: RESP 18
[2025-09-08 07:09] LABS: Hematocrit (blood only) 37.6 % (42.0-52.0); Hemoglobin 12.6 g/dl (14.0-18.0); Immature Granulocytes # (auto) 0.04 K/uL (0.01-0.20); Immature Granulocytes % (auto) 0.5 %; Mean Corpuscular Hemoglobin 29.7 pg (25.0-34.0); Mean Corpuscular Volume 88.7 fL (80.0-100.0); Platelet Count 300 K/uL (130-400); RDW Standard Deviation 41.1 fL (36.4-46.3); Red Blood Count 4.24 M/uL (4.70-6.10); White Blood Count 8.53 K/ul (4.8-10.8)
[2025-09-08 07:43] LABS: Anion Gap 4.0 (3-11); Calcium 9.0 mg/dl (8.6-10.3); Carbon Dioxide 27.0 mmol/L (21-32); Chloride 106.0 mmol/L (98-107); Magnesium 1.8 mg/dl (1.7-2.4); Potassium 4.3 mmol/L (3.5-5.1); Sodium 137.0 mmol/L (136-145)
[2025-09-08 07:48] LABS: Blood Urea Nitrogen 18.0 mg/dl (6-23); Creatinine Clr Calc Pharmacy 92.9 ml/min; Glucose 107.0 mg/dl (70-99(Fasting))
--- NOTE | 2025-09-08 13:55 | Hospitalist Progress Note ---
Date of Service September 08, 2025 Assessment & Plan (1) Acute CVA (cerebrovascular accident): Plan Per admitting provider w/ addendum: 70 yo male with pmhx of alcohol use (6 drinks per night), mild cognitive impairment 2/2 alcohol use, tobacco use, hypothyroidism, prostate cancer (unclear staging or etiology) presenting for right arm/leg movement difficulties and confusion 2/2 acute stroke. MR brain - IMPRESSION: 1. Acute 4 cm infarct of the left frontal lobe stringer radiata and lentiform nucleus. The associated cytotoxic edema causes local mass effect with resultant 5 mm rightward midline shift. 2. No acute intracranial hemorrhage. 3. Involutional changes with chronic microvascular ischemic disease. #Left Frontal Stringer Radiata/Lentiform Nucleus Stroke #Cytotoxic Edema w/ Midline Shift - discussed w/ neurology - seems overread -as noted on MR brain, 5mm midline shift with cytotoxic edema -has NIHSS of 7 on admission for dysarthria, mild loss of sensation on right s mary, right leg drift, right arm drift, partial paralysis of right lower face -has substantial alcohol use which is likely risk factor Plan: -neurology consulted, appreciate recs -admitting provider discussed MR findings personally with neurology, recommending supportive care -speech, PT/OT consults -current A1c 5%, lipids - LDL 90, TSH 1.7 -check tox screen - pending -aspirin and statin daily Neurology consulted and discussed with - 1) Acute CVA (cerebrovascular accident): Aníbal Solomon is a 70 yo M presenting with a L BG stroke, non-lacunar, likely embolic secondary to uncontrolled vascular risk factors, including hypertension and tobacco/alcohol use. Agree he may have some mild cognitive impairment beyond the language impairment from the stroke itself. Recommend ongoing thiamine and alcohol withdrawl monitoring. For the stroke aspirin monotherapy is appropriate. Agree with lipitor 40mg daily as well. While the stroke is abutting the lateral ventricle on the L there is no clinically significant brain compression despite the read of midline shift on the MRI study. Does not qualify for manitol, no evidence of high ICP on exam and given the size of the stroke this is not expected to worsen significantly. -- Aspirin 81mg daily -- Lipitor 40mg daily -- Thiamine PO supplementation -- Alcohol withdrawal monitoring/rehab -- Cardiac event monitor at discharge -- Therapy evals, likely acute rehab placement -- Neurology follow-up in 4-6 weeks #Alcohol Use #R/o Wernickes/Korsakoff Syndrome -drinks at least 6 drinks per night - this is questionable as pt from alf, caregiver visited today (09/08) and says likely pt drinks monthly -charted evidence of cognitive impairment noted - +mild myoclonus on exam on admission Plan: -AWSS score tracking -ativan prn for high AWSS scores -started thiamine, folic acid, B12 level 200s, will start B12 supplement as well -no signs of alcohol withdrawal , plan to [facility] #Hypothyroidism -not on any home meds -TSH 1.7 #Tobacco Use -nicotine patch prn Admission and Anticipated Discharge Date Admission Date: September 06, 2025 Subjective Pt seen in follow up of acute CVA, also hx of alcohol abuse Currently sitting up in bed in NAD Denies any chest pain, shortness of breath, abd. pain, n/v, denies any headache Can't move RUE. Can somewhat move RLE but noticeably weaker than his LLE. Discussed alcohol use - pt says he drinks beer daily. He is from alf, caregiver visited today and discussed w/ CM - pt is not drinking daily per his report, only about once a month. Currently no signs of withdrawal. Plan to likely DC to [facility] tmrw. Review of Systems Review of Systems: All systems reviewed & are unremarkable except as noted in Subjective Physical Exam Physical Exam: Gen: A&O 3 NAD HEENT: NCAT, EOMI, not icteric. External ears normal. No rhinorrhea. Neck: Supple Lungs: No Respiratory distress. CV: RRR, no edema. Abdomen: Soft, nondistended, Nontender MSK: No LE edema. Can't move RUE. Can somewhat move RLE but noticeably weaker than LLE. Skin: warm, dry Neuro: awake, alert, answers most questions appropriately. + facial asymmetry. Can't move RUE. Can somewhat move RLE but noticeably weaker than LLE. Results & Data Results & Data Vital Signs (Past 12 Hours) Vital Signs Temp Pulse Pulse Resp BP Pulse Ox O2 Del Method 09/08/25 10:56 36.6 C 71 18 111/64 96 Room Air 09/08/25 08:00 Room Air 09/08/25 08:00 69 09/08/25 07:17 36.8 C 79 18 132/75 96 Room Air 09/08/25 03:48 36.3 C L 79 18 114/70 95 Room Air Laboratory Results 09/08/25 09/07/25 Range/Units 06:27 16:11 WBC 8.53 (4.8-10.8) K/ul RBC 4.24 L (4.70-6.10) M/uL Hgb 12.6 L (14.0-18.0) g/dl Hct 37.6 L (42.0-52.0) % MCV 88.7 (80.0-100.0) fL MCH 29.7 (25.0-34.0) pg MCHC 33.5 (32.0-36.0) g/dL RDW Std Deviation 41.1 (36.4-46.3) fL RDW Coeff of Fiona 12.8 (11.5-14.5) % Plt Count 300 (130-400) K/uL MPV 9.3 L (9.4-12.4) fL Immature Gran % (Auto) 0.5 % Neut % (Auto) 62.5 % Lymph % (Auto) 17.9 % Harper % (Auto) 11.4 % Eos % (Auto) 6.9 % Baso % (Auto) 0.8 % Neut # (Auto) 5.33 (1.40-6.50) K/uL Lymph # (Auto) 1.53 (1.20-3.40) K/uL Harper # (Auto) 0.97 H (0.11-0.59) K/uL Eos # (Auto) 0.59 H (0.00-0.50) K/uL Baso # (Auto) 0.07 (0.00-0.20) K/uL Immature Gran # (Auto) 0.04 (0.01-0.20) K/uL Sodium 137 135 L (136-145) mmol/L Potassium 4.3 3.9 (3.5-5.1) mmol/L Chloride 106 103 (98-107) mmol/L Carbon Dioxide 27 26 (21-32) mmol/L Anion Gap 4 6 (3-11) BUN 18 19 (6-23) mg/dl Creatinine 0.74 0.80 (0.6-1.4) mg/dl Est Cr Clr Drug Dosing 92.9 85.9 ml/min eGFR 97.48 95.21 BUN/Creatinine Ratio 24.3 H 23.8 H (10-20) Glucose 107 H 112 H (70-99(Fasting)) mg/dl Calcium 9.0 9.2 (8.6-10.3) mg/dl Phosphorus 3.9 (2.5-4.9) mg/dl Magnesium 1.8 (1.7-2.4) mg/dl Medications Administered Current Inpatient Medications Acetaminophen (Acetaminophen 325 Mg Tab) 650 mg PO Q4H PRN PRN Reason: Pain or Fever Stop: 10/06/25 16:17 Last Admin: 09/07/25 19:43 Dose: 650 mg Aspirin (Aspirin 81 Mg Ectab) 81 mg PO [facility] Stop: 10/07/25 08:59 Last Admin: 09/08/25 08:11 Dose: 81 mg Atorvastatin Calcium (Atorvastatin 40 Mg Tab) 40 mg PO [facility] Stop: 10/06/25 11:44 Last Admin: 09/08/25 08:11 Dose: 40 mg Cyanocobalamin (Cyanocobalamin (B-12) 500 Mcg Tablet) 1,000 mcg PO [facility] Stop: 10/07/25 15:44 Last Admin: 09/08/25 08:11 Dose: 1,000 mcg Folic Acid (Folic Acid 1 Mg Tab) 1 mg PO [facility] Stop: 10/06/25 11:59 Last Admin: 09/08/25 08:11 Dose: 1 mg Gabapentin (Gabapentin 100 Mg Cap) 200 mg PO [facility] Stop: 10/07/25 20:59 Last Admin: 09/07/25 19:44 Dose: 200 mg Miscellaneous (Remove Nicoderm Patch) 1 each N/A DAILY@0859 [facility] Stop: 10/07/25 08:58 Last Admin: 09/08/25 08:11 Dose: 1 each Miscellaneous Information (Pharmacist Discharge Med Rec Consult) 1 each N/A UD PRN PRN Reason: Consult Stop: 10/06/25 11:34 Multivit[facility] ([facility]amin Tab) [facility] Stop: 10/06/25 11:59 Last Admin: 09/08/25 08:12 Dose: 1 tab Nicotine (Nicotine 14 Mg/24 Hr Patch) 1 patch TD DAILY PRN PRN Reason: nicotine cravings Stop: 10/06/25 18:20 Last Admin: 09/07/25 09:18 Dose: 1 patch Polyethylene Glycol (Polyethylene (Miralax) 17 Gm Pack) 17 gm PO DAILY PRN PRN Reason: Constipation Stop: 10/06/25 16:17 Thiamine HCl (Thiamine Hcl 100 Mg Tab) [facility] [place] Stop: 10/07/25 08:59 Last Admin: 09/08/25 08:12 Dose: 100 mg
[2025-09-09 02:29] VITALS: O2SAT 95
[2025-09-09 06:25] LABS: Hematocrit (blood only) 36.5 % (42.0-52.0); Hemoglobin 12.9 g/dl (14.0-18.0); Mean Corpuscular Hemoglobin 30.6 pg (25.0-34.0); Mean Corpuscular Volume 86.5 fL (80.0-100.0); Platelet Count 290 K/uL (130-400); RDW Standard Deviation 39.7 fL (36.4-46.3); Red Blood Count 4.22 M/uL (4.70-6.10); White Blood Count 8.82 K/ul (4.8-10.8)
[2025-09-09 06:49] LABS: Anion Gap 3.0 (3-11); Blood Urea Nitrogen 14.0 mg/dl (6-23); Calcium 8.8 mg/dl (8.6-10.3); Carbon Dioxide 29.0 mmol/L (21-32); Chloride 103.0 mmol/L (98-107); Creatinine Clr Calc Pharmacy 92.9 ml/min; Glucose 104.0 mg/dl (70-99(Fasting)); Magnesium 1.7 mg/dl (1.7-2.4); Potassium 4.4 mmol/L (3.5-5.1); Sodium 135.0 mmol/L (136-145)
--- NOTE | 2025-09-09 07:36 | Discharge Summary ---
Date of Service September 09, 2025 Admission HPI Per Admitting Provider 70 yo male with pmhx of alcohol use (6 drinks per night), mild cognitive impairement 2/2 alcohol use, tobacco use, hypothyroidism, prostate cancer (unclear staging or etiology) presenting for right arm/leg movement difficulties and confusion. No recent admissions. In the ED, code stroke called, CT head revealing acute/subacute infarct in left basal ganglia, telestroke recommended admission for stroke workup, aspirin given, admitted to medicine. Patient seen and examined at bedside. Patient states he went to bed normally last night, was drinking last night as well and states he passed out. Drinks at least 6 beers nightly. Woke up this morning and could not move right arm or right leg. States this has not happened to him before. States he fell to the ground and does not remember how he got here. States he is at hospital, does not know which hospital. States he feels like he is improving Code status discussed, patient states that he would not want intubation or chest compressions at end of life, was able to explain what this means with readback. Was able to explain risks and benefits of resuscitation after being informed of them. Admission Exam Per Admitting Provider Gen: A&O 3 NAD HEENT: NCAT, EOMI, not icteric. External ears normal. No rhinorrhea. Dry mucous membranes. Neck: Supple, full range of motion, no observable masses, No meningeal sign. Lungs: No Respiratory distress. CV: RRR, no edema. Abdomen: Soft, nondistended, No rebound tenderness. MSK: No joint swelling, no redness. Skin: No rashes, petechiae, lesions. Normal color per patient. Neuro:NIHSS of 7 points for dysarthria, mild loss of sensation on right side, right leg drift, right arm drift, partial paralyisis of right lower face Psych: Appropriate for situation. Principal Diagnosis Acute CVA Discharge Exam Gen: A&O 3 NAD HEENT: NCAT, EOMI, not icteric. External ears normal. No rhinorrhea. Neck: Supple Lungs: No Respiratory distress. CV: RRR, no edema. Abdomen: Soft, nondistended, Nontender MSK: No LE edema. Can't move RUE. Can somewhat move RLE but noticeably weaker than LLE. Skin: warm, dry Neuro: awake, alert, answers most questions appropriately. Can't move RUE. Can somewhat move RLE but noticeably weaker than LLE. Discharge Data Allergies Allergy/AdvReac Type Severity Reaction Status Date / Time Penicillins Allergy Intermediate Rash Verified 09/06/25 15:44 pollen extracts Allergy Unknown "seasonal Verified 09/06/25 15:44 allergies" Consultations 09/06/25 11:13 ED Decision to Admit Stat 09/06/25 16:18 Consult Neurology Routine Ordered Studies 09/06/25 10:20 CT angio head w con Stat FINDINGS: A 3.4 x 1.8 cm hypodense focus within the left basal ganglia is better depicted on the unenhanced head CT which will be reported separately. No acute intracranial hemorrhage is present. The bilateral M1 and M2 segments are patent. Both anterior cerebral arteries arise from the left internal carotid artery. Posterior circulation is intact. No large vessel occlusion is identified. No intracranial aneurysm. IMPRESSION: 1. No large vessel occlusion. No intracranial aneurysm. 2. 3.4 x 1.8 cm hypodense focus within the left basal ganglia better depicted on the noncontrast head CT. This is suggestive of an acute to subacute infarct with mild mass effect. CT angio neck with con Stat FINDINGS: Origin of the left common carotid artery is off the field of view inferiorly. No significant narrowing or occlusion seen at the common or internal carotid or vertebral arteries bilaterally. IMPRESSION: No significant arterial narrowing or occlusion seen at the neck. CT head/brain wo con Stat FINDINGS: No acute intracranial hemorrhage is present. Note is made of a 3.4 x 1.8 cm hypodense focus within the left basal ganglia on image 55 of 112. There is suggestive of mild mass effect with slight compression of the left lateral ventricle. A small hypoechoic dense 5 mm focus within left caudate head may be c hronic. White matter hypodensity suggests small vessel disease. Basal cisterns are patent. There are no extra-axial collections. There are no calvarial fractures. There is mild sinus mucosal thickening. IMPRESSION: 1. No acute intracranial hemorrhage. 2. 3.4 x 1.8 cm hypodense focus within left basal ganglia suggestive of an acute to subacute infarct with mild mass effect. 3. Small age indeterminate left caudate head infarct. 09/06/25 10:35 CT cervical spine wo con Stat FINDINGS: Skeletal structures: There is mild reversal of the cervical lordosis. Moderate multilevel disc space narrowing, endplate osteophytosis and facet arthrosis within the cervical spine is present. There is no evidence of fracture or subluxation involving the cervical spine. Vertebral body height and alignment are maintained. The odontoid process and lateral masses are intact. The atlantoaxial articulation is preserved. The spinous processes appear intact. Soft tissues: The prevertebral and paraspinous soft tissues are within normal limits. Calvarium: The visualized calvarium at the skull base appears intact. Brain parenchyma: Partially visualized brain parenchyma at the skull base is within normal limits. Lung apices: Clear as visualized. IMPRESSION: No acute cervical spine fracture or subluxation. 09/06/25 11:35 MR brain wo con Routine FINDINGS: 2.1 x 3.9 x 3.4 similar focus of restricted diffusion involves the left frontal lobe snow radiata/lentiform nucleus with decreased signal on ADC map and increased T2/FLAIR signal causing mild adjacent mass effect with partial effacement of the left lateral ventricle. Midline structures are unremarkable. Degenerative changes of the cervical spine. Rightward midline shift of 5 mm. No acute intracranial hemorrhage, hydrocephalus or definite intra-axial mass. Involutional changes with moderate T2/FLAIR hyperintense foci throughout the white matter. Cerebral venous sinuses and major arterial flow voids appear patent. Skull, orbits and soft tissues are unremarkable. Trace mastoid effusions. IMPRESSION: 1. Acute 4 cm infarct of the left frontal lobe snow radiata and lentiform nucleus. The associated cytotoxic edema causes local mass effect with resultant 5 mm rightward midline shift. 2. No acute intracranial hemorrhage. 3. Involutional changes with chronic microvascular ischemic disease. Hospital Course (1) Acute CVA (cerebrovascular accident): Plan 70 yo male with pmhx of alcohol use (6 drinks per night), mild cognitive impairment 2/2 alcohol use, tobacco use, hypothyroidism, prostate cancer (unclear staging or etiology) presenting for right arm/leg movement difficulties and confusion 2/2 acute stroke. MR brain - IMPRESSION: 1. Acute 4 cm infarct of the left frontal lobe snow radiata and lentiform nucleus. The associated cytotoxic edema causes local mass effect with resultant 5 mm rightward midline shift. 2. No acute intracranial hemorrhage. 3. Involutional changes with chronic microvascular ischemic disease. #Left Frontal Snow Radiata/Lentiform Nucleus Stroke #Cytotoxic Edema w/ Midline Shift - discussed w/ neurology - seems overread -as noted on MR brain, 5mm midline shift with cytotoxic edema -has NIHSS of 7 on admission for dysarthria, mild loss of sensation on right side, right leg drift, right arm drift, partial paralysis of right lower face -has substantial alcohol use which is likely risk factor Plan: -neurology consulted, appreciate recs -admitting provider discussed MR findings personally with neurology, recommending supportive care -speech, PT/OT consults -current A1c 5%, lipids - LDL 90, TSH 1.7 -check tox screen - negative -aspirin and statin daily Neurology consulted and discussed with - 1) Acute CVA (cerebrovascular accident): Aníbal Solomon is a 70 yo M presenting with a L BG stroke, non-lacunar, likely embolic secondary to uncontrolled vascular risk factors, including hypertension and tobacco/alcohol use. Agree he may have some mild cognitive impairment beyond the language impairment from the stroke itself. Recommend ongoing thiamine and a lcohol withdrawl monitoring. For the stroke aspirin monotherapy is appropriate. Agree with lipitor 40mg daily as well. While the stroke is abutting the lateral ventricle on the L there is no clinically significant brain compression despite the read of midline shift on the MRI study. Does not qualify for manitol, no evidence of high ICP on exam and given the size of the stroke this is not expected to worsen significantly. -- Aspirin 81mg daily -- Lipitor 40mg daily -- Thiamine PO supplementation -- Alcohol withdrawal monitoring -- Cardiac event monitor at discharge -- Therapy evals, likely acute rehab placement -- Neurology follow-up in 4-6 weeks #Alcohol Use #R/o Wernickes/Korsakoff Syndrome -drinks at least 6 drinks per night - this is questionable as pt from [facility], caregiver visited on (09/08) and says likely pt drinks monthly -charted evidence of cognitive impairment noted - +mild myoclonus on exam on admission Plan: -AWSS score tracking -ativan prn for high AWSS scores -started thiamine, folic acid, B12 level 200s, started B12 supplement as well -no signs of alcohol withdrawal , plan to [facility] #Hypothyroidism -not on any home meds -TSH 1.7 #Tobacco Use -nicotine patch prn Total Time Total Time Spent Total Time Spent (In Minutes): 40 Discharge Plan Discharge Items Patient Disposition: Transfer Inpatient Rehab Fac Reason For Visit: STROKE Discharge Diagnosis: Acute CVA Condition on Discharge: Fair Activity: Per Instructions section Non-emergency contact: Primary Care Provider and Neurologist Call non-emergency contact if: you have any medication questions and your symptoms worsen Follow-up/Referrals: Eric Jensen MD [Primary Care Provider] - Diet: Heart Healthy Addtl Attending Provider Instructions: Follow up with your primary care physician and neurologist. You should be seen by primary care physician within 1-2 weeks. Take aspirin and lipitor daily. Also, take thiamine, folic acid, vit. B12, multivitamin. Pending Studies at Discharge: No Stand-Alone Forms: My [facility] [employer] Medications to Prevent Stroke Skilled Items Patient informed of condition?: Yes DNR: Yes Discharge Level of Care: Acute rehab Communicable Disease: No Discharge Prognosis: Stable Lines: None Urinary Catheter: No Medications and DC Order Prescriptions: New atorvastatin 40 mg Tablet 40 mg PO QAM Qty: 30 0RF aspirin 81 mg Tablet,Delayed Release (Dr/Ec) 81 mg PO QAM Qty: 30 0RF thiamine HCl (vitamin B1) 100 mg Tablet 100 mg PO QAM Qty: 30 0RF folic acid 1 mg Tablet 1 mg PO QAM Qty: 30 0RF cyanocobalamin (vitamin B-12) 500 mcg Tablet 1,000 mcg PO QAM Qty: 60 0RF acetaminophen 325 mg Tablet 650 mg PO Q4H PRN (Reason: fever or pain) Qty: 14 0RF multivitamin with folic acid [Daily-Dell (with folic acid)] 400 mcg Tablet 1 tab PO QAM Qty: 30 0RF Discharge Orders: Discharge Order (Routine); Ordered 09/09/25 Ordered By: Hemal Bruno Admission Data Admit Date/Time: 09/06/25 11:35 Attending Provider: Hemal Bruno Admit Provider: Alfonso Jackson Primary Care Provider: Eric Jensen Other Providers: Alfonso Jackson; Nikko Cole; [facility]
[2025-09-09] MEDS: MAGNESIUM SULFATE / D5W 1 GM/100 ML BAG IV ONE (08:02)
[2025-09-09 08:29] VITALS: BP 125/73; PULSE 70; TEMP 97.9
[2025-09-09] MEDS ORDERED: STROKE PATIENT DISCHARGE STA (09:17)
== END 2025-09-09 10:50 | DRG 65 ==
LOC: ED 10:28 → SUATTDRO 11:35 → 2S 11:35